=== PATIENT | female | born 1950 | race Caucasian/White ===

== ENCOUNTER 2019-08-08 17:29 | Inpatient (IN) | payer MEDICARE ==
[~2019-08-08] VITALS: Ht 157.5 cm; Wt 80.5 kg
[2019-08-08 18:36] LABS: BASOPHIL % 0 % (0-2); PLATELET COUNT 72 x10^3mcL (130-400); RED CELL DISTRIBUTION WIDTH 16.7 % (11.5-14.5)
[2019-08-08 18:53] LABS: BILIRUBIN TOTAL 0.58 mg/dL (0.20-1.00); CALCIUM 9.2 mg/dL (8.5-10.1); CARBON DIOXIDE 29.4 mmol/L (21-32); CREATININE SERUM 1.1 mg/dL (0.6-1.0); MAGNESIUM 1.6 mg/dL (1.8-2.4); TOTAL PROTEIN, SERUM 6.2 g/dL (6.4-8.2)
[2019-08-08 18:55] LABS: POTASSIUM SERUM 2.8 mmol/L (3.5-5.1)
[2019-08-08 19:19] LABS: rbc morphology (normal/abnorm) ABNORMAL (NORMAL)
[2019-08-08 19:51] LABS: microscopic required? YES; urine erythrocyte NEGATIVE (NEGATIVE)
[2019-08-08] MEDS ORDERED: ZESTRIL10 MG PO (20:08)
[2019-08-08 21:32] VITALS: BP 131/64
[2019-08-08 21:36] VITALS: Ht 157.5 cm; Wt 80.5 kg
[2019-08-09 05:03] VITALS: BP 96/62
[2019-08-09 06:22] LABS: CALCIUM 8.7 mg/dL (8.5-10.1); CARBON DIOXIDE 29.1 mmol/L (21-32); CHLORIDE SERUM 104 mmol/L (98-107); CREATININE SERUM 0.9 mg/dL (0.6-1.0); GFR1 > 60 mL/min; GLUCOSE SERUM 91 mg/dL (74-106); MAGNESIUM 1.7 mg/dL (1.8-2.4); POTASSIUM SERUM 3.8 mmol/L (3.5-5.1); SODIUM SERUM 141 mmol/L (136-145)
[2019-08-09 06:32] LABS: BASOPHIL % 0.2 % (0-2)
[2019-08-09 07:28] LABS: PLATELET COUNT 68 x10^3mcL (130-400); RED CELL DISTRIBUTION WIDTH 16.8 % (11.5-14.5)
[2019-08-09 07:29] VITALS: BP 110/63
[2019-08-09 12:06] VITALS: BP 104/62
[2019-08-09 12:34] LABS: rbc morphology (normal/abnorm) NORMAL (NORMAL)
[2019-08-09 15:41] VITALS: BP 109/58
[2019-08-09 19:17] VITALS: BP 91/43
[2019-08-10 05:36] VITALS: BP 97/61
[2019-08-10 06:42] LABS: CALCIUM 8.6 mg/dL (8.5-10.1); CARBON DIOXIDE 24.9 mmol/L (21-32); CHLORIDE SERUM 109 mmol/L (98-107); CREATININE SERUM 0.8 mg/dL (0.6-1.0); GFR1 > 60 mL/min; GLUCOSE SERUM 95 mg/dL (74-106); MAGNESIUM 1.7 mg/dL (1.8-2.4); POTASSIUM SERUM 5.1 mmol/L (3.5-5.1); SODIUM SERUM 143 mmol/L (136-145)
[2019-08-10 07:46] VITALS: BP 132/73
[2019-08-10 11:21] VITALS: BP 103/69
[2019-08-10] MEDS ORDERED: IPRATROPIUM BROM3 M2 INH (11:28)
[2019-08-10] MEDS ORDERED: ACID REDUCER20 MG PO (11:28)
[2019-08-10] MEDS ORDERED: KEFLEX500 M1 PO (11:29)
[2019-08-10 13:15] VITALS: BP 103/69
[2019-08-10 16:19] VITALS: BP 101/65
[2019-08-10 19:57] VITALS: BP 104/67
== END 2019-08-10 20:53 | DRG 640 ==
LOC: ED 17:29 → DU 20:49
PROVIDERS: Emergency Medicine; ADMIT Internal Medicine Pulmonary Disease
DX: E86.0 Dehydration (principal); D61.810 Antineoplastic chemotherapy induced pancytopenia; N39.0 Urinary tract infection, site not specified; C34.90 Malignant neoplasm of unspecified part of unspecified bronchus or lung; N17.9 Acute kidney failure, unspecified; E87.6 Hypokalemia; T45.1X5A Adverse effect of antineoplastic and immunosuppressive drugs, initial encounter; K21.0 Gastro-esophageal reflux disease with esophagitis; E66.9 Obesity, unspecified; Z68.32 Body mass index [BMI] 32.0-32.9, adult; Z79.899 Other long term (current) drug therapy; Y92.009 Unspecified place in unspecified non-institutional (private) residence as the place of occurrence of the external cause
CPT/HCPCS: 97116-GP; 97530-GP; G0378; J0696; J3480; J7030; J7060; J7626; Q0092